=== PATIENT | female | born 1970 | race Two or more races ===

== ENCOUNTER 2019-03-26 17:56 | Emergency (ER) | payer MEDICAID, OTHER ==
[~2019-03-26] VITALS: Ht 162.6 cm; Wt 72.6 kg
[2019-03-26 19:07] LABS: Basophils # (auto) 0 uL; Basophils % (auto) 0.5 % (0.0-2.0); Eosinophils # (auto) 0.2 uL; Eosinophils % (auto) 2.5 % (0.0-7.0); Hematocrit 42.3 % (36.0-46.0); Hemoglobin 14.4 g/dL (12.2-16.2); Lymphocytes # (auto) 2.8 uL; Lymphocytes % (auto) 40.7 % (10.0-50.0); Mean Corpuscular Volume 94.2 fL (80.0-100.0); Monocytes # (auto) 0.5 uL; Monocytes % (auto) 7.8 % (0.0-12.0); Neutrophils # (auto) 3.3 uL; Neutrophils % (auto) 48.5 % (37.0-80.0); Nucleated Red Blood Cells % 0.1 %; Platelet Count (auto) 235 10^3/uL (140-450); Red Blood Cells 4.49 10^6/uL (4.0-5.20); Red Cell Distribution Width 12.9 % (11.8-14.3); White Blood Cell 6.9 10^3/uL (4.4-10.8)
[2019-03-26 19:30] LABS: Albumin 3.3 g/dL (3.4-5.0); BUN/Creatinine Ratio 20.6; Calcium 8.6 mg/dL (8.5-10.1); Potassium 3.9 mmol/L (3.5-5.1); Salicylate < 1.7 mg/dL (2.8-20.0)
[2019-03-26 19:32] LABS: Bilirubin, Total 0.3 mg/dL (0.2-1.0); Total Protein 7.4 g/dL (6.4-8.2)
[2019-03-26 19:33] LABS: INR 1.04 (0.9-1.15); Partial Thromboplastin Time 24.9 sec (23.64-32.05)
[2019-03-26 19:36] LABS: Blood Alcohol < 3.0 mg/dL (0-5)
[2019-03-26 20:25] LABS: Acetaminophen < 2.0 ug/mL (10-30)
[2019-03-26 21:49] LABS: Urine Bacteria FEW /hpf (None Seen); Urine Blood Negative /uL (Negative); Urine Mucus FEW (None Seen); Urine Specific Gravity 1.022 (1.001-1.035); Urine WBC 2 /hpf (0 - 5)
[2019-03-26 21:53] LABS: Alcohol, Urine < 3.0 mg/dL (0-5); Amphetamine Screen, Urine NEGATIVE (NEGATIVE); Barbiturate Scree,Urine NEGATIVE (NEGATIVE); Benzodiazephine Screen, Urine NEGATIVE (NEGATIVE); Cannabinoid Screen, Urine NEGATIVE (NEGATIVE); Opiate Scree,Urine NEGATIVE (NEGATIVE); Phencyclidine Screen, Urine NEGATIVE (NEGATIVE)
[2019-03-26 22:05] LABS: Cocaine Screen, Urine NEGATIVE (NEGATIVE)
[2019-03-26] MEDS ORDERED: IOHEXOL 350 MG/ML 100ML IJ ONE (22:05)
[2019-03-26 23:00] VITALS: BP 131/73
== END 2019-03-26 23:07 | disposition home or self-care (01) ==
LOC: ER 17:56 → EDBD 17:56 → ER 23:07
DX: G51.0 Bell's palsy (principal); F41.9 Anxiety disorder, unspecified; H57.89 Other specified disorders of eye and adnexa; R42 Dizziness and giddiness
CPT/HCPCS: 36415; 70450; 71045; 71275; 80053; 80307; 80320; 80329; 81001; 81025; 83735; 83880; 84443; 84484; 85025; 85379; 85610; 85730; 99284; Q9967